=== PATIENT | female | born 1985 | race American Indian/Alaskan Native ===

== ENCOUNTER 2017-12-20 19:50 | Emergency (ER) | payer OTHER ==
--- NOTE | 2017-12-20 20:31 | Emergency Department Report ---
HPI - General Chief Complaint: Vaginal Bleeding Time Seen by Provider: 12/20/17 20:14 - HPI HPI: Room 24 The patient is 32-year-old female presented with a chief complaint heavy vaginal bleeding. The patient states she is one month status post vaginal delivery on 11/19/2017. The patient states after delivery she had vaginal bleeding for approximately 2 weeks and then it turned to spotting. The patient states today she developed heavy vaginal bleeding that has gone through 5 pads so far. Patient states the bleeding is coming through her clothing. The patient states she has some left lower quadrant discomfort when this happened and some lightheadedness prompting her to come to the ED. The patient states she has not contacted her GUEST SERVICES ATTENDANT yet. Location: Pelvis Duration: [See above] Quality: Passing blood clots Severity: Heavy Modifying factors: [see above] Context: [see above] Mode of transportation: The patient drove herself to the emergency department and there are no visitors present ED Past Medical Hx - Past Medical History Hx Asthma: Yes - Surgical History Past Surgical History?: No - Family History Family history: no significant - Social History Smoking Status: Never Smoker Substance Use Type: None (denies illicit drug use) ED Review of Systems ROS: Stated complaint: VAGINAL BLEEDING Other details as noted in HPI Constitutional: denies: fever Eyes: denies: eye pain ENT: denies: throat pain Cardiovascular: denies: chest pain Endocrine: denies: unexplained weight loss Gastrointestinal: abdominal pain Genitourinary: abnormal menses Musculoskeletal: denies: back pain Skin: denies: change in color Neurological: denies: headache Physical Exam - Physical Exam Vital Signs: Vital Signs 12/20/17 20:02 Temperature 98.5 F Pulse Rate 80 Respiratory 18 Rate Blood Pressure 124/82 O2 Sat by Pulse 97 Oximetry Physical Exam: GENERAL: The patient is well-developed well-nourished female standing in room not appear to be in acute distress. [] HEENT: Normocephalic. Atraumatic. Extraocular motions are intact. Patient has moist mucous membranes. NECK: Supple. Trachea midline CHEST/LUNGS: Clear to auscultation. There is no respiratory distress noted. HEART/CARDIOVASCULAR: Regular. There is no tachycardia. There is no gallop rub or murmur. ABDOMEN: Abdomen is soft, nontender. Patient has normal bowel sounds. There is no abdominal distention. SKIN: There is no rash. There is no edema. There is no diaphoresis. NEURO: The patient is awake, alert, and oriented. The patient is cooperative. The patient has normal speech and gait. MUSCULOSKELETAL:There is no evidence of acute injury. PELVIC: Patient eloped prior to pelvic exam ED Course Vital Signs 12/20/17 20:02 Temperature 98.5 F Pulse Rate 80 Respiratory 18 Rate Blood Pressure 124/82 O2 Sat by Pulse 97 Oximetry ED Medical Decision Making - Lab Data Result diagrams: 12/20/17 20:18 - Radiology Data Radiology results: report reviewed (pelvic ultrasound), image reviewed (pelvic ultrasound) [facility] [address] [place] [address] Ultrasound Report Signed Patient: ANNMARIE COLE MR#: [id number] : 1985 Acct:[id number] Age/Sex: 32 / F ADM Date: 12/20/17 Loc: ED Attending Dr: Ordering Physician: TU MCDOWELL MD Date of Service: 12/20/17 Procedure(s): US transvaginal Accession Number(s): [id number] cc: TU MCDOWELL MD FINAL REPORT PROCEDURE: US TRANSVAGINAL TECHNIQUE: Real-time transvaginal sonography in multiple planes of the pelvis was performed with image documentation. This examination was performed without Doppler. Vascular abnormalities, including ovarian torsion, will not be detectable without Doppler evaluation. CPT 44042 HISTORY: heavy vaginal bleeding, 1 month COMPARISON: No prior studies are available for comparison. FINDINGS: UTERUS Size: 412 x 8 x 10 cm. Endometrial thickness: 9 mm. Orientation: anteverted. Cervix: Normal. Fibroids/masses: 2 mixed echoic lesions are identified involving the uterine body measuring 8 centimeters and 2.2 centimeters.. RIGHT Ovary: 3.8 x 1.8 x 2.2 cm. Appearance: Normal. LEFT Ovary: Not visualized Pelvic fluid: Minimal free fluid is noted in the pelvic cavity. Other: None. IMPRESSION: Two focal lesions in the uterus are consistent with fibroids. Minimal free fluid in the pelvic cavity is within physiologic limits peer. Transcribed By: UBC Dictated By: RAÚL VAZQUEZ Electronically Authenticated By: RAÚL VAZQUEZ Signed Date/Time: 12/20/172236 DD/ 36 TD/TT: 12/20/172236 - Differential Diagnosis menorrhagia, retained products of conception, uterine fibroids Critical care attestation.: If time is entered above; I have spent that time in minutes in the direct care of this critically ill patient, excluding procedure time. ED Disposition Clinical Impression: Menorrhagia Disposition: - ELOPED Is pt being admited?: No Does the pt Need Aspirin: No Condition: Undetermined Referrals: PRIMARY CARE, [Primary Care Provider] - 3-5 Days Forms: AMA Form Time of Disposition: 00:17 (patient eloped)
[2017-12-20 20:35] LABS: Basophils % (Auto) 0.4 % (0.0-1.8); Eosinophils # (Auto) 0.1 K/mm3 (0.0-0.4); Eosinophils % (Auto) 1.8 % (0.0-4.3); Hematocrit 33.6 % (30.3-42.9); Hemoglobin 11.6 gm/dl (10.1-14.3); Lymphocytes # (Auto) 4.3 K/mm3 (1.2-5.4); Lymphocytes % (Auto) 50.3 % (13.4-35.0); Mean Corpuscular HGB Conc 35 % (30-34); Mean Corpuscular Hemoglobin 29 pg (28-32); Mean Corpuscular Volume 83 fl (79-97); Monocytes # (Auto) 0.5 K/mm3 (0.0-0.8); Monocytes % (Auto) 5.3 % (0.0-7.3); Platelet Count 161 K/mm3 (140-440); Red Blood Count 4.03 M/mm3 (3.65-5.03)
[2017-12-20 20:44] LABS: INR 0.87 (0.87-1.13); Partial Thromboplastin Time 31.9 Sec. (24.2-36.6)
[2017-12-20 20:58] LABS: Bilirubin,Urine NEG (Negative); Blood,Urine LG (Negative); Color,Urine Yellow (Yellow); Mucus,Urine FEW /HPF; Protein,Urine <15 mg/dL mg/dL (Negative)
[2017-12-20 21:10] LABS: RBC,Urine > 182.0 /HPF (0.0-6.0); WBC,Urine < 1.0 /HPF (0.0-6.0)
[2017-12-20 22:34] VITALS: BP 122/78
--- NOTE | 2017-12-20 22:39 | Ultrasound Report ---
FINAL REPORT PROCEDURE: US PELVIC COMPLETE TECHNIQUE: Real-time transabdominal sonography in multiple planes of pelvis was performed with image documentation. This examination was performed without Doppler. Vascular abnormalities, including ovarian torsion, will not be detectable without Doppler evaluation. CPT 45673 HISTORY: heavy vaginal bleeding, 1 month COMPARISON: No prior studies are available for comparison. FINDINGS: UTERUS Size: 12 x 8 by 10 cm. Endometrial thickness: 9 mm. Orientation: anteverted. Cervix: Normal. Fibroids/masses: 2 mixed echoic lesions are identified involving the uterine body measuring 8 centimeters and 2.2 centimeters. RIGHT Ovary: 3.8 x 1.8 x 2.2 cm. Appearance: Normal. LEFT Ovary: Not visualized Pelvic fluid: Minimal free fluid is noted in the pelvic cavity. Other: None. IMPRESSION: Two focal lesions of uterus most consistent with uterine fibroids. Minimal free fluid in the pelvic cavity is within physiologic limits.
--- NOTE | 2017-12-20 22:41 | Ultrasound Report ---
FINAL REPORT PROCEDURE: US TRANSVAGINAL TECHNIQUE: Real-time transvaginal sonography in multiple planes of the pelvis was performed with image documentation. This examination was performed without Doppler. Vascular abnormalities, including ovarian torsion, will not be detectable without Doppler evaluation. CPT 20183 HISTORY: heavy vaginal bleeding, 1 month COMPARISON: No prior studies are available for comparison. FINDINGS: UTERUS Size: 412 x 8 x 10 cm. Endometrial thickness: 9 mm. Orientation: anteverted. Cervix: Normal. Fibroids/masses: 2 mixed echoic lesions are identified involving the uterine body measuring 8 centimeters and 2.2 centimeters.. RIGHT Ovary: 3.8 x 1.8 x 2.2 cm. Appearance: Normal. LEFT Ovary: Not visualized Pelvic fluid: Minimal free fluid is noted in the pelvic cavity. Other: None. IMPRESSION: Two focal lesions in the uterus are consistent with fibroids. Minimal free fluid in the pelvic cavity is within physiologic limits peer.
== END 2017-12-21 00:05 | disposition left against medical advice (07) ==
LOC: ED 19:50
DX: N92.0 Excessive and frequent menstruation with regular cycle (principal); J45.909 Unspecified asthma, uncomplicated
CPT/HCPCS: 36415; 76830; 76856; 81001; 84702; 85025; 85610; 85730

== ENCOUNTER 2018-01-19 08:14 | Outpatient (CLI) | payer BC, OTHER ==
[2018-01-19] MEDS ORDERED: XYLOCAINE TOPICAL 4% TP ONE ×2 (08:30→09:24)
[2018-01-19] MEDS ORDERED: SILVER NITRATE TP ONE ×2 (09:10→09:25)
[2018-01-19] MEDS ORDERED: XYLOCAINE 1% 20 mL ONE (09:16)
[2018-01-19] MEDS ORDERED: XYLOCAINE 1% 20 mL INFILTRATI ONE (09:25)
== END 2018-01-19 08:15 | disposition home or self-care (01) ==
LOC: WOUND 08:14
PROVIDERS: ATTEND Surgery
DX: S61.001A Unspecified open wound of right thumb without damage to nail, initial encounter (principal); W26.0XXA Contact with knife, initial encounter; Y93.89 Activity, other specified; Y92.89 Other specified places as the place of occurrence of the external cause; Y99.8 Other external cause status
CPT/HCPCS: 11042; G0463

== ENCOUNTER 2018-01-26 09:42 | Outpatient (CLI) | payer BC, OTHER ==
[2018-01-26] MEDS ORDERED: XYLOCAINE TOPICAL 4% TP ONE ×2 (10:16→10:30)
[2018-01-26] MEDS ORDERED: SILVER NITRATE TP ONE ×2 (10:16→10:30)
== END 2018-01-26 09:43 | disposition home or self-care (01) ==
LOC: WOUND 09:42
PROVIDERS: ATTEND Surgery
DX: S61.001D Unspecified open wound of right thumb without damage to nail, subsequent encounter (principal); W26.0XXD Contact with knife, subsequent encounter
CPT/HCPCS: 17250